=== PATIENT | male | born 1975 | race Caucasian/White ===

== ENCOUNTER 2016-11-28 09:41 | Inpatient (IN) | payer OTHER ==
[~2016-11-28] VITALS: Ht 182.9 cm; Wt 102.4 kg
[2016-11-28] VITALS (14 sets, daily range): BP systolic 132–174; BP diastolic 74–127; PULSE 68–99; RESP 12–20; O2SAT 97–100
--- NOTE | 2016-11-28 10:01 | ED.REPORT ---
HPI-General Illness Date of Service November 28, 2016 ED Provider: Gary Dahl MD The patient is a 41 year old male who presents to the ED due to thoracic pain with respiration onset today. Pt also reports pain in his chest and neck that began 4-5 days ago and has been increasing in severity. He describes abdominal pain that starts beneath his rib cage and radiates to the back. Pt had a cold last week with a productive cough and nasal congestion. Pt's girlfriend confirms weakness and fatigue and has, "never seen him like this before." He has been taking Excedrin and Ibuprofen for pain and denies fevers, nausea, and vomiting. The pt uses THC irregularly and does not do IV drugs. Nursing Notes Stated Complaint: PAIN IN NECK/SOB Chief Complaint: General Complaint Nursing Notes Reviewed: Yes Allergies: Coded Allergies: No Known Allergies (Verified , 11/28/16) Scheduled PRN Ibuprofen (Ibuprofen) 400 Mg Tablet 400 MG PO TID PRN PRN For Pain Miscellaneous Medications ([Excedrin]) General Time Seen by MD: 09:47 Chief Complaint Other (thoracic pain with respiration) Hx Obtained From: Patient, Spouse Arrived By: Walk-in Sudden in Onset?: Yes Onset Occurred: 4 days ago Symptom Duration: Since onset Location: : Abdomen: Back: Chest Quality: Painful Severity: Current: Moderate Recent Healthcare: No recent doctor visit, No recent hospitalization Similar Sx Previous: No Past Medical History Past Medical History pericarditis Past Surgical History gastric bypass Social History Drug Use: THC Other Social History: Good social support, Local resident Ambulatory Status Independent Review of Systems Full Review of Systems Constitutional: Reports: Fatigue, Denies: Fever Ears / Nose / Throat: Reports: Nasal congestion Cardiovascular: Reports: Chest pain GI: Reports: Abdominal pain, Denies: Nausea, Vomiting Musculoskeletal: Reports: Back pain, Neck pain, Thoracic pain Neurologic: Reports: Weakness Complete sys rev & neg: except as marked. Physical Exam Vital Signs Vital Signs Date Time Temp Pulse Resp B/P Pulse Ox O2 Delivery O2 Flow Rate FiO2 11/28/16 14:15 90 12 143/85 98 Room Air 11/28/16 13:24 81 12 147/74 97 Room Air 11/28/16 12:32 77 19 149/86 99 Room Air 11/28/16 10:43 85 141/95 99 Room Air 11/28/16 09:47 36.1 99 20 174/127 100 Room Air Initial VS: Reviewed Head / Eyes: Atraumatic, Normocephalic, PERRL Neck: Supple, Non-tender Cardiovascular: Regular rate & rhythm, Heart sounds normal, Intact distal pulses Abdomen / GI: Soft, Non-tender, No guarding, No rebound, No distention Back: No CVA tenderness Extremities: Vascular intact, Neuro intact, No swelling, No tenderness Skin: Warm, Dry General/Constitutional: Awake, Cooperative Respiratory / Chest: No rhonchi, No wheezing, No retractions Faint course breath sounds at bilateral bases Cardiovascular: Heart rate NL, Regular rhythm, No murmurs, No rubs no pericardial friction Tenderness/Guarding/Rebound: Positive: Tender epigastric Back: No CVA tenderness Interpretation & Diagnostics Lab Results Interpretation Result Diagram: 11/29/16 0240 11/29/16 0240 Test 11/28/16 11:00 11/28/16 12:26 D-Dimer 1.92mg/L FEU (<0.50) Total Bilirubin 0.2mg/dL (0.0-1.2) Aspartate Amino Transf (AST/SGOT) 23U/L (0-50) Alanine Aminotransferase (ALT/SGPT) 14U/L (0-44) Alkaline Phosphatase 89U/L (25-150) Troponin T < 0.010ug/L (0.0-0.011) C-Reactive Protein 1.8mg/dL (0.0-0.5) Pro-B-Type Natriuretic Peptide 79.28pg/mL (0-86) Total Protein 7.1g/dL (6.4-8.4) Albumin 3.9g/dL (3.4-5.0) Lipase 23U/L (13-60) Urine Color Yellow (YELLOW) Urine Appearance Clear (CLEAR,HAZY) Urine pH 5.5 (5.0-8.0) Urine Specific [place] 1.025 (1.003-1.035) Urine Protein Tracemg/dL (NEG,TRACE) Urine Glucose (UA) Negativemg/dL (NEGATIVE) Urine Ketones Negativemg/dL (NEGATIVE) Urine Occult Blood Negative (NEGATIVE) Urine Nitrite Negative (NEGATIVE) Urine Bilirubin Small (NEGATIVE) Urine Ictotest Negative (Negative) Urine Urobilinogen Normalmg/dL (NORMAL) Urine Leukocyte Esterase Negative (NEGATIVE) Urine RBC 0-2/hpf (0-2) Urine WBC 0-5/hpf (0-5) Urine Epithelial Cells Few/hpf (NONE-MOD) Urine Crystals None seen (NONE SEEN) Urine Bacteria None/hpf (NONE-FEW) Urine Hyaline Casts None/lpf (NONE) Urine Granular Casts None seen (NONE SEEN) Urine Waxy Casts None seen (NONE SEEN) Urine Red Blood Cell Casts None seen (NONE SEEN) Urine White Blood Cell Casts None seen (NONE SEEN) Urine Mucus None seen (None Seen) Urine Trichomonas None seen (NONE SEEN) Urine Yeast None (NONE SEEN) Urinalysis Comment None Urine Culture Reflexed Not indicated ECG Interpretation ECG Interpretation: no ST changes Time: 10:06 Interpreted by: ED physician Normal ECG Interpretation: Normal sinus rhythm (rate 89) X-Ray Chest Interpretation Chest Xray Interpretation: IMPRESSION: Pneumoperitoneum. Recommend correlation with clinical data and CT scan of the abdomen and pelvis if clinically indicated. Dictated by: Myrna Castro MD, PhD on 11/28/2016 at 10:35 Approved by: Myrna Castro MD, PhD on 11/28/2016 at 10:36 View: Portable Interpretation / Wet Read by: Interpret - Radiologist X-Ray Abdominal Interpretation IMPRESSION: Pneumoperitoneum. Bowel rupture cannot be excluded. Dictated by: Myrna Castro MD, PhD on 11/28/2016 at 11:19 Approved by: Myrna Castro MD, PhD on 11/28/2016 at 11:20 Study: 2 view Interpretation / Wet Read by: Interpret - Radiologist CT Abd / Pelvis Interpretation IMPRESSION: 1. Moderate amount of pneumoperitoneum concerning for bowel rupture area cause of the pneumoperitoneum is not fully visualized by CT imaging. 2. Status post gastric bypass. 3. Right renal atrophy likely related to chronic obstructive uropathy. 4. 9 mm proximal right renal stone without hydronephrosis. 5. L5-S1 grade I isthmic spondylolisthesis. 6. Findings telephoned to Dr. Dahl on 11/28/16 at 1233 hrs. Dictated by: Myrna Castro MD, PhD on 11/28/2016 at 12:28 Approved by: Myrna Castro MD, PhD on 11/28/2016 at 12:37 Study type: Abdominal CT no contrast Interpretation / Wet Read by: Interpret - Radiologist Re-Eval/Medical Decision Med Decision/Clinical Course 41-year-old male history of gastric bypass in 2008 presenting with epigastric pain and chest pain times several days worsening today. Chest x-ray and CT confirmed pneumoperitoneum with no clear source. Discussed with general surgery admitted to hospital with plans to go to the OR emergently. Given 2 L normal saline and Zosyn. Stable at admission. Time of Eval: 11:55 Re-Evaluation/Progress Note: Pt rechecked. Pain is slightly improved. Informed pt of abdominal x-ray showing air in the intestinal tract. Plan for Catscan. Consultation #1: Call Returned at: 11:30 Note: Case discussed with radiology, Dr. Schaffer. He was not able to identify the source. Consultation #2: Referral / Consult Name: Ceferino Santana MD Call Returned at: 12:44 [employer]: Will see patient, Agrees with eval, Agrees with plan Note: Dr. Santana will come and see the pt in the ED. Counseled Regarding: Diagnosis, Lab results, Need for admission Discharge & Departure Primary Impression: Gastrointestinal perforation Disposition: ADMITTED TO HOSPITAL Discharge Condition All VS Reviewed: Yes Condition: Stable Referrals: [facility] Scribe Attestation Portion of this note were transcribed by Ivelisse Brannon. I, Dr. Dahl, personally performed the history, physical exam, and medical decision-making: I reviewed and confirmed the accuracy for the information in the transcribed note. Signed by: tamara Wilkinson, 11/28/16 1500 copies to: [facility] Gary Dahl MD November 28, 2016 10:01 Ivelisse Brannon November 28, 2016 10:32 ECG Interpretation ECG Interpretation: no ST changes Time: 10:06 Interpreted by: ED physician Normal ECG Interpretation: Normal sinus rhythm (rate 89) X-Ray Chest Interpretation Chest Xray Interpretation: IMPRESSION: Pneumoperitoneum. Recommend correlation with clinical data and CT scan of the abdomen and pelvis if clinically indicated. Dictated by: Myrna Castro MD, PhD on 11/28/2016 at 10:35 Approved by: Myrna Castro MD, PhD on 11/28/2016 at 10:36 View: Portable Interpretation / Wet Read by: Interpret - Radiologist X-Ray Abdominal Interpretation IMPRESSION: Pneumoperitoneum. Bowel rupture cannot be excluded. Dictated by: Myrna Castro MD, PhD on 11/28/2016 at 11:19 Approved by: Myrna Castro MD, PhD on 11/28/2016 at 11:20 Study: 2 view Interpretation / Wet Read by: Interpret - Radiologist CT Abd / Pelvis Interpretation IMPRESSION: 1. Moderate amount of pneumoperitoneum concerning for bowel rupture area cause of the pneumoperitoneum is not fully visualized by CT imaging. 2. Status post gastric bypass. 3. Right renal atrophy likely related to chronic obstructive uropathy. 4. 9 mm proximal right renal stone without hydronephrosis. 5. L5-S1 grade I isthmic spondylolisthesis. 6. Findings telephoned to Dr. Dahl on 11/28/16 at 1233 hrs. Dictated by: Myrna Castro MD, PhD on 11/28/2016 at 12:28 Approved by: Myrna Castro MD, PhD on 11/28/2016 at 12:37 Study type: Abdominal CT no contrast Interpretation / Wet Read by: Interpret - Radiologist Re-Eval/Medical Decision Time of Eval: 11:55 Re-Evaluation/Progress Note: Pt rechecked. Pain is slightly improved. Informed pt of abdominal x-ray showing air in the intestinal tract. Plan for Catscan. Consultation #1: Call Returned at: 11:30 Note: Case discussed with radiology, Dr. Schaffer. He was not able to identify the source. Consultation #2: Referral / Consult Name: eCferino Santana MD Call Returned at: 12:44 [employer]: Will see patient, Agrees with eval, Agrees with plan Note: Dr. Santana will come and see the pt in the ED. Counseled Regarding: Diagnosis, Lab results, Need for admission Discharge & Departure Primary Impression: Gastrointestinal perforation Disposition: ADMITTED TO HOSPITAL Discharge Condition All VS Reviewed: Yes Condition: Stable Referrals: [facility] Tamara Attestation Portion of this note were transcribed by Ivelisse Brannon. I, Dr. Dahl, personally performed the history, physical exam, and medical decision-making: I reviewed and confirmed the accuracy for the information in the transcribed note. Signed by: tamara Wilkinson, 11/28/16 1500 copies to: [facility] Gary Dahl MD November 28, 2016 10:01 Ivelisse Brannon November 28, 2016 10:32
[2016-11-28] MEDS ORDERED: 0.9% Sodium Chloride 1,000 ML IV ONE (10:33)
[2016-11-28] MEDS ORDERED: Ondansetron 2 mg/mL 2 mL Inj IVPUSH PRN ×6 (10:35→18:40)
[2016-11-28] MEDS ORDERED: LidocaineVisc 2%:Antacid 1:1 10 mL Syringe PO ONE (10:35)
--- NOTE | 2016-11-28 10:38 | DRSVH ---
PROCEDURE: X-RAY CHEST ONE VIEW, PORTABLE ([id number]) INDICATIONS: Shortness of breath TECHNIQUE: One view of the chest was acquired. COMPARISON: None. FINDINGS: Surgical changes and devices: None. Lungs and pleura: No pleural effusions or pneumothorax. Lungs are clear. Mediastinum: Mediastinal contours appear normal. Heart size is normal. Free air under the diaphrag ms bilaterally. Bones and chest wall: No suspicious bony lesions. Overlying soft tissues appear unremarkable. IMPRESSION: Pneumoperitoneum. Recommend correlation with clinical data and CT scan of the abdomen a nd pelvis if clinically indicated. Dictated by: Myrna Castro MD, PhD on 11/28/2016 at 10:35 Approved by: Myrna Castro MD, PhD on 11/28/2016 at 10:36
[2016-11-28 11:20] LABS: BASOPHILS % (AUTO) 0.1 % (0-3); EOSINOPHILS % (AUTO) 2.3 % (0-5); MONOCYTES % (AUTO) 6.1 % (4-12); Mean Corpuscular Hemoglobin 23.5 pg (27.0-35.0); Mean Corpuscular Volume 76.3 fL (81-100); NEUTROPHILS % (AUTO) 85.1 % (40-74); Platelet Count 450 bil/L (150-400)
--- NOTE | 2016-11-28 11:22 | DRSVH ---
PROCEDURE: X-RAY ABDOMEN WITH ERECT AND/OR DECUBITUS VIEWS ([id number]) INDICATIONS: abdominal pain TECHNIQUE: 2 views of the abdomen were acquired. COMPARISON: None. FINDINGS: Surgical changes and devices: None. Bowel: Free air is noted under the left hemidiaphragm. Multiple surgical sutures noted in the gastr oesophageal junction. The bowel gas pattern is normal. Soft tissues: No masses; visualized solid organ contours appear normal in size. No suspicious abdom inal calcifications. Bones: No suspicious bony abnormalities. IMPRESSION: Pneumoperitoneum. Bowel rupture cannot be excluded. Dictated by: Myrna Castro MD, PhD on 11/28/2016 at 11:19 Approved by: Myrna Castro MD, PhD on 11/28/2016 at 11:20
[2016-11-28] MEDS ORDERED: Piperacillin-Tazo 3.375 Gm Inj 3.375 GM in Dextrose 5% Minibag Plus 50 ML IV ONE (11:35)
[2016-11-28 11:43] LABS: TROPONIN T < 0.010 ug/L (0.0-0.011)
[2016-11-28 11:48] LABS: Lipase 23 U/L (13-60)
[2016-11-28] MEDS ORDERED: IBUP400T22 PO (12:38)
--- NOTE | 2016-11-28 12:38 | DRSVH ---
PROCEDURE: CT ABDOMEN AND PELVIS WITH CONTRAST ([id number]) INDICATIONS: abd pain pneumoperiteneum TECHNIQUE: After the administration of intravenous contrast, 5 mm thick sections acquired from the diaphragm to the symphysis. 5 mm coronal and sagittal reformats were acquired. For radiation dose reduction, the following was used: automated exposure control, adjustment of mA and/or kV according to patient siz e. COMPARISON: [facility], CT, ABD/PELVIS W/CON (PNL), 01/14/2009, 15:48. FINDINGS: Image quality: Excellent. ABDOMEN: Lung bases: Lung bases are clear. Heart size is normal. Solid organs: Liver and spleen are normal in size and enhancement. Gallbladder is within normal its. Biliary system is non dilated. Pancreas enhances normally. No adrenal nodules. Right kidney i s atrophied. There is compensatory hypertrophy of the left kidney. 9 mm in diameter stones noted in the proximal right ureter without associated hydronephrosis. 1.7 cm left renal cyst is noted. Peritoneum and bowel: Bowel loops demonstrate normal wall thickness and caliber. Moderate amount of free air is seen throughout the abdomen and pelvis including within the lesser sac. Postsurgical lui nges compatible prior gastric bypass surgery noted. Nodes and vessels: No retroperitoneal or mesenteric adenopathy by size criteria. Aorta and inferior vena cava are normal in size. Miscellaneous: No ventral hernias. PELVIS: Genitourinary: Bladder wall thickness is normal. Miscellaneous: No inguinal hernias or adenopathy. Bones: No suspicious bony lesions. No vertebral body compression fractures. L5-S1 degenerative disc disease and grade one isthmic spondylolisthesis noted. IMPRESSION: 1. Moderate amount of pneumoperitoneum concerning for bowel rupture area cause of the pneumoperitone um is not fully visualized by CT imaging. 2. Status post gastric bypass. 3. Right renal atrophy likely related to chronic obstructive uropathy. 4. 9 mm proximal right renal stone without hydronephrosis. 5. L5-S1 grade I isthmic spondylolisthesis. 6. Findings telephoned to Dr. Dahl on 11/28/16 at 1233 hrs. Dictated by: Myrna Castro MD, PhD on 11/28/2016 at 12:28 Approved by: Myrna Castro MD, PhD on 11/28/2016 at 12:37
[2016-11-28 12:48] LABS: APPEARANCE,URINE CLEAR (CLEAR,HAZY); COLOR,URINE YELLOW (YELLOW); ICTOTEST,URINE NEGATIVE (Negative); OCCULT BLOOD,URINE NEGATIVE (NEGATIVE); PH,URINE 5.5 (5.0-8.0); UROBILINOGEN,URINE NORMAL (NORMAL)
[2016-11-28] MEDS ORDERED: EXCEDRIN (13:24)
[2016-11-28] MEDS ORDERED: PSEU240T6 PO (13:24)
[2016-11-28] MEDS ORDERED: Alum-Mag Hydrox-Simeth 30 mL Suspension PO PRN (14:00)
[2016-11-28] MEDS ORDERED: Polyethylene Glycol (PEG) 17 Gm Powder PO PRN (14:00)
[2016-11-28] MEDS ORDERED: Glycopyrrolate 0.2 MG/ML 1mL Inj ONE (14:19)
[2016-11-28] MEDS ORDERED: Neostigmine 1 mg/mL 10 mL Inj ONE (14:19)
[2016-11-28] MEDS ORDERED: Dexamethasone 4 mg/mL Inj ONE (14:19)
[2016-11-28] MEDS ORDERED: Rocuronium 10 mg/mL 5 mL Inj ONE (14:19)
[2016-11-28] MEDS ORDERED: Ondansetron 2 mg/mL 2 mL Inj ONE (14:19)
[2016-11-28] MEDS: 0.9% Sodium Chloride 1,000 ML IV SCH ×2 (15:01→23:58)
--- NOTE | 2016-11-28 15:19 | PCM.HPMED ---
Subjective Date of Service November 28, 2016 Primary Provider: Admitting Physician: Uvaldo Marmolejo DO Primary Care Physician: Milind Attending Physician: Ceferino Santana MD Chief Complaint: Abdominal pain radiating to back History of Present Illness: Patient is a 41-year-old male past medical history significant for remote bariatric surgery greater than 10 years ago presenting now for these are becoming more severe overnight. Pertinent history includes chronic dental and back pain for which patient takes a significant amount of ibuprofen. He denies any dark black or bloody stools however, notes stool pattern recently has been light brown and slightly watery. Last night he endorsed perhaps some mild chills but denies any fever or sweats. He also denies any palpitations or shortness of breath. Additional recent history includes a likely viral URI she occurred approximately one week previous creating a productive cough and nasal congestion, but this has been improving. Patient is accompanied by his girlfriend confirms T has not been himself appears very weak and fatigued and she has "never seen him like this before". Patient additionally denies any dizziness or blurry vision. Denies any pain radiating to extremities. Denies any focal weakness but he is overall feeling quite fatigued. Review of Systems: A 10 point review of systems is conducted and entirely negative excepting pertinent positives and negatives included in above history of present illness Allergies Coded Allergies: No Known Allergies (Verified , 11/28/16) Home Medications Ibuprofen when necessary Excedrin when necessary No scheduled medications PMH Remote history of pericarditis Obesity, benefited from gastric bypass surgery. Surgical History Gastric bypass surgery, patient is unsure of what type, states they told him they left a small amount of gastric tissue. Family History Notes father passed from heart disease some type Other side is more healthy is aware of no chronic diseases on her side. Social History Hx Alcohol Use: Yes (NONE REALLY ANYMORE. HEAVY DRINKER 2004-2009ISH) Hx Substance Use: Yes (OCCASIONAL MARIJUANA) Hx Tobacco Use: Yes Exam Vital Signs Vital Sign - Last Date Time Temp Pulse Resp B/P Pulse Ox O2 Delivery O2 Flow Rate FiO2 11/28/16 14:57 70 15 132/78 100 Room Air 11/28/16 09:47 36.1 General: Alert, Oriented X3, Cooperative, Moderate Distress Mouth: Mucous Membr Moist/[place], Other (patient has overall poor dentition multiple cavities noted however there is no overt abscess or gum infection noted on my examination.) Neck: Supple Chest & Lungs: Clear to auscultation & percussion Cardiovascular: Regular Rate/Rhythm Abdomen: Tender, Non-distended, Other (deep palpation is not conducted given identification of likely perforated viscus on imaging, patient is diffusely tender more pronounced in upper quadrants. Bowel sounds are present. ) Extremities: No cyanosis/clubbing/edma bilat Neurological: Grossly Neurologically Intact, Cranial Nerves 2-12 Intact Lab and Diagnostics Result Diagram: 11/28/16 1100 11/28/16 1100 Assessment & Plan 41-year-old male presenting with likely perforated viscus related to excessive NSAID use with a remote history of gastric bypass surgery admitted for expected exploratory surgery and hopeful treatment of this condition. #. Perforated viscus likely secondary to upper GI ulcer in the setting of excessive NSAID use - Gen. surgery has seen and evaluated patient planning on taking him to OR later today - Patient is nothing by mouth an expectation of upcoming surgery - Intravenous fluids will be continued at 100 mL per hour - Pain control with when necessary morphine to be titrated as needed - Zosyn initiated in ER will be continued for coverage of possible bacterial peritonitis secondary to perforation #Dental pain - We will provide opiate-based pain medications at this time, NSAIDs would certainly be contraindicated in the future - Tylenol may be reasonable alternative, ideally further evaluation by dental professional will be ideal for long-term treatment of dental disease. CODE STATUS is been reviewed directly patient prefers to be full code at this time. Given severity of condition as did patient will require more than 2 midnights for adequate care medical stabilization prior to discharge Pain Evaluation: Adequate Pain Control VTE Mechanical Devices: Intermittant Pneumatic CD Resuscitation Status: CPR: Attempt Resuscitation Time spent 55 minutes Uvaldo Marmolejo DO November 28, 2016 15:19
--- NOTE | 2016-11-28 16:00 | HP ---
[address] [address] HISTORY AND PHYSICAL PATIENT: LAURA YEH : 1975 MR#: [id number] ADMIT: 11/28/2016 JOB ID: [id number] CHIEF COMPLAINT: Perforated viscus. HISTORY OF PRESENT ILLNESS: The patient is a 41-year-old male who presented to the emergency department today due to worsening epigastric abdominal pain. The patient reports having this abdominal pain for the past five days or so. He was coughing quite a bit prior to the five days due to having colds or flu. The pain is described to be in the epigastric region and radiates to the left costal region and up into his neck. He has been having weakness and fatigue. The patient has had a history of laparoscopic gastric bypass in [place] in 2002. He was routinely taking ibuprofen approximately 400 mg a day for toothaches and back pain and over the past five days he has increased the amount to about eight pills a day, which is 1600 mg a day, for his abdominal pain. He denies any vomiting due to his history of gastric bypass and he denies any fevers. Workup in the emergency department today shows an elevated white blood count of 16.3 and a plain x-ray shows pneumoperitoneum and subsequently a CT scan that confirms a moderate amount of pneumoperitoneum. He is status post gastric bypass. PAST MEDICAL HISTORY: Laparoscopic gastric bypass in 2002 in [place]. History of pericardial effusion and pericarditis requiring a drain, right axillary sweat gland removal. HOME MEDICATIONS: Include ibuprofen and also pseudoephedrine. ALLERGIES: None. SOCIAL HISTORY: The patient lives in [place] with his girlfriend. He does not drink. He works in property preservation. Occasionally smokes marijuana. FAMILY HISTORY: Positive for diabetes in his father and heart disease. REVIEW OF SYSTEMS: Positive for the epigastric pain for the past five days, requiring increasing amounts of ibuprofen. No fever and no vomiting. PHYSICAL EXAMINATION: Patient currently in the emergency department in no acute distress. His weight is 109.09 kg. His temperature is 36.1, blood pressure 147/74, pulse is 81, respirations 12. Head is normocephalic, atraumatic. There is no scleral icterus. Neck is supple. Heart is in regular rate. Lungs are clear. Abdomen is nondistended but it is tender to palpation in the epigastric location and extends to the left upper quadrant as well. The right lower abdomen is soft. Extremities show no clubbing and no cyanosis. Neurologically, patient is awake and alert and answers appropriately. LABORATORY EXAMINATION: Today shows a white blood count of 16.3, hematocrit 36.1, platelet count is 450. Sodium is 140, potassium 4.4, creatinine 1.14. Lipase of 23. Total bilirubin of 0.2. His chest x-ray from today shows the pneumoperitoneum and this is confirmed by abdominal x-rays and also the abdominal CT scan. ASSESSMENT: This is a 41-year-old male with a history of gastric bypass with a perforated viscus. The patient has been started with IV antibiotics and he is receiving IV fluid resuscitation. The patient will be taken to the operating room today for diagnostic laparoscopy, possible laparotomy. The risks of the operation were explained to the patient and his girlfriend and they understand and wish to proceed. The patient will most likely require intensive care unit in the postop period. I will consult the hospitalist team. EMELYN
[2016-11-28] MEDS ORDERED: Lactated Ringer's 1,000 ML IV ONE ×2 (16:05→17:10)
--- NOTE | 2016-11-28 16:05 | PCM.HPANE ---
Patient Data Surgeon Admitting Provider:Uvaldo Marmolejo DO Attending Provider:Ceferino Santana MD Primary Care Physician:Nopcp Other Provider: Reason for Visit Gi Perforation Ht/WT & BMI Height (Feet): 6 Weight (Kilograms): 99.100 Body Mass Index 29.59 Allergies Coded Allergies: No Known Allergies (Verified , 11/28/16) Past Anesthesia History Anesthesia History: Denies:: Anesthesia Reactions Medications Reported Medications [Excedrin] No Conflict Check 11/28/16 Ibuprofen 400 Mg [id number] Mg PO TID PRN For Pain Ref 0 11/28/16 Discontinued Reported Medications Pseudoephedrine HCl (Sudafed 24-Hour)240 Mg Tab.[id number] Mg PO 11/28/16 History History of ENT Problems?: No HEENT History: Denies:: Abnormal Airway Difficult Intubation Denture Type: None Teeth Condition: Within Normal Limits Hx of Heart Problems?: Yes Cardiovascular History: Denies:: Chest Pain Congestive Heart Failure Other History/Comments History of pericarditis Hx of Respiratory Problem?: Yes Respiratory History: Positive for:: Dyspnea (X1 week prior to admission) Hx Neurologic Problems?: No Hx of GI Problems?: Yes Hx of Problems?: No Male Hx: Denies:: Scrotal Mass Testicular Surgery Hx Musculoskeletal Problems?: No Hx of Psycho/Social Problems?: No Hx Surgeries?: Yes (gastric bypass, I&D of armpit) Hx Any Other Health Problems?: Yes Other History: Positive for:: Hospitalization History Blood Transfusions: Denies:: Blood Transfusions Hx Alcohol Use: Yes (NONE REALLY ANYMORE. HEAVY DRINKER 2004-2009ISH)Hx Substance Use: Yes (OCCASIONAL MARIJUANA)Have You Smoked inLast 12 mo: Yes Stop/Bang Treated for Sleep Apnea?: No Do You Have a CPAP Machine?: No S-Snoring: Do You Snore Loudly: No T-Tired: feel tired, fatigued: No O-Obsered: Observed not breath: No P-Blood Pressure: treated: No B- Body Mass Index > 35 kg/m2: No A- Age over 50: No N- Neck Large Circumference: No G- Gender Male: Yes COLTON Risk Assessment: Low Risk, <3 Yes Risk Assessment Category Category 1A: Patient has history of documented sleep apnea, and HAS NOT received any narcotic, sedative or anesthesia administration during this stay. Category 1B: Patient has history of documented sleep apnea, and HAS received any narcotic , sedative or anesthesia administration during this stay Category 2: Patient has SUSPECTED Obstructive Sleep Apnea, and HAS received any narcotic , sedative or anesthesia administration during this stay. Category 3: Patient has SUSPECTED Obstructive Sleep Apnea and HAS NOT received narcotic, sedative or anesthesia administration during this stay. Category 4: Outpatient in Procedural Areas with known sleep apnea or who screen positive for High Risk via the STOP/BANG questionnaire. Exam Exam Vital Signs Vital Signs Date Time Temp Pulse Resp B/P Pulse Ox O2 Delivery O2 Flow Rate FiO2 11/28/16 15:19 36.7 69 18 135/86 99 Room Air 11/28/16 14:57 70 15 132/78 100 Room Air 11/28/16 14:15 90 12 143/85 98 Room Air 11/28/16 13:24 81 12 147/74 97 Room Air 11/28/16 12:32 77 19 149/86 99 Room Air 11/28/16 10:43 85 141/95 99 Room Air 11/28/16 09:47 36.1 99 20 174/127 100 Room Air General Appearance: Alert, Oriented X3, Cooperative, Moderate Distress HEENT/AIRWAY: MP 2 Lungs: Clear to Auscultation, Normal Air Movement Heart: Exam Unremarkable, Regular Rate/Rhythm, No Murmurs/Rubs/Gallops Meds/Labs/Diagnostics Admission Meds Current Medications Sodium Chloride 1,000 ml @ 0 mls/hr Q0M ONCE IV Last administered on 11:23; Start 11/28/16 at 10:33; Stop 11/28/16 at 10:37; Status DC Piperacillin Sod/ Tazobactam Sod 3.375 gm/Dextrose/ Water 50 ml @ 100 mls/hr ONCE ONCE IV Last administered on 11/28/16 11:58; Start 11/28/16 at 11:35; Stop 11/28/16 at 12:04; Status DC Sodium Chloride (Normal Saline) 1,000 ml @ 100 mls/hr Q10H IV Last administered on 11/28/16 15:01; Start 11/28/16 at 13:59 Labs Test 11/28/16 11:00 11/28/16 12:26 White Blood Count 16.3th/mm3 (3.8-10.1) Red Blood Count 4.73mil/mm3 (4.40-5.80) Hemoglobin 11.1g/dL (13.8-17.2) Hematocrit 36.1% (41.0-50.0) Mean Corpuscular Volume 76.3fL (81-100) Mean Corpuscular Hemoglobin 23.5pg (27.0-35.0) Mean Corpuscular Hemoglobin Concent 30.7% (32.0-37.0) Red Cell Distribution Width 17.1% (12.3-15.4) Platelet Count 450bil/L (150-400) Neutrophils (%) (Auto) 85.1% (40-74) Lymphocytes (%) (Auto) 6.2% (14-46) Monocytes (%) (Auto) 6.1% (4-12) Eosinophils (%) (Auto) 2.3% (0-5) Basophils (%) (Auto) 0.1% (0-3) D-Dimer 1.92mg/L FEU (<0.50) Sodium Level 140mEq/L (134-144) Potassium Level 4.4mEq/L (3.5-5.2) Chloride Level 104mEq/L (97-108) Carbon Dioxide Level 18mmol/L (18-29) Blood Urea Nitrogen 18mg/dL (6-24) Creatinine 1.14mg/dL (0.76-1.27) Estimat Glomerular Filtration Rate 75mL/min (>59) Glucose Level 103mg/dL (60-99) Calcium Level 9.4mg/dL (8.5-10.1) Total Bilirubin 0.2mg/dL (0.0-1.2) Aspartate Amino Transf (AST/SGOT) 23U/L (0-50) Alanine Aminotransferase (ALT/SGPT) 14U/L (0-44) Alkaline Phosphatase 89U/L (25-150) Troponin T < 0.010ug/L (0.0-0.011) C-Reactive Protein 1.8mg/dL (0.0-0.5) Pro-B-Type Natriuretic Peptide 79.28pg/mL (0-86) Total Protein 7.1g/dL (6.4-8.4) Albumin 3.9g/dL (3.4-5.0) Lipase 23U/L (13-60) Urine Color Yellow (YELLOW) Urine Appearance Clear (CLEAR,HAZY) Urine pH 5.5 (5.0-8.0) Urine Specific [place] 1.025 (1.003-1.035) Urine Protein Tracemg/dL (NEG,TRACE) Urine Glucose (UA) Negativemg/dL (NEGATIVE) Urine Ketones Negativemg/dL (NEGATIVE) Urine Occult Blood Negative (NEGATIVE) Urine Nitrite Negative (NEGATIVE) Urine Bilirubin Small (NEGATIVE) Urine Ictotest Negative (Negative) Urine Urobilinogen Normalmg/dL (NORMAL) Urine Leukocyte Esterase Negative (NEGATIVE) Urine RBC 0-2/hpf (0-2) Urine WBC 0-5/hpf (0-5) Urine Epithelial Cells Few/hpf (NONE-MOD) Urine Crystals None seen (NONE SEEN) Urine Bacteria None/hpf (NONE-FEW) Urine Hyaline Casts None/lpf (NONE) Urine Granular Casts None seen (NONE SEEN) Urine Waxy Casts None seen (NONE SEEN) Urine Red Blood Cell Casts None seen (NONE SEEN) Urine White Blood Cell Casts None seen (NONE SEEN) Urine Mucus None seen (None Seen) Urine Trichomonas None seen (NONE SEEN) Urine Yeast None (NONE SEEN) Urinalysis Comment None Urine Culture Reflexed Not indicated Plan Impression Patient chart reviewed, patient interviewed and anesthestic plan with risks, benefits, and alternatives discussed, and informed consent obtained. NPO per Anesth. Guidelines: Yes ASA Physical Status: ASA2 Plus Emergency Anesthetic Plan: GA Bene/Risks/Altern/Consents: Yes HP Complete Prior to Induction: Yes Cecilio Burton MD November 28, 2016 16:05
[2016-11-28] MEDS ORDERED: Bupivacaine-MPF 0.25%/EPI 30 mL Inj INFILTRATE ONE (17:33)
--- NOTE | 2016-11-28 17:53 | NUR ---
Admit/transfer to OR Patient arrived in CCU after 1500 today. Patient was awake and oriented X3 but appeared to be tired. Vitals remained stable. Abdomen was soft but tender and patient was reluctant to take deep breaths. Oxygen saturation on RA was 96-98% with respiratory rate 16-18 breaths per min. Patient stated increase in his abdominal pain from 4-5/10 to 5-7/10 he was medicate with morphine 2mg IV X1 but pain did not improved and within 10 min patient was given a second dose of morphine 2mg IV of total of 4- paten decreased to 2-4/10 ranges and patient was able to relax. Patient was taken out to OR at 1650 by SOIL ANALYST. Patient voided x1 225ml of cam urine master control operator to OR. Blood glucose per finger stick was 105 at the time. Prior to transfer to OR patient was given instructions regarding the possibility of Walters catheter insertion in OR, returning to CCU on oxygen or intubated with possible abdominal drains and OG tube as well as MILK TREATER instructions. Patient and his present in the room at the time verbalized understanding. Report was given to the SOIL ANALYST at the bedside.
[2016-11-28] MEDS ORDERED: Lactated Ringer's 500 ML IV PRN (18:04)
[2016-11-28] MEDS ORDERED: Lactated Ringer's 1,000 ML IV SCH (18:04)
[2016-11-28] MEDS ORDERED: HYDROmorphone 1 mg/mL Inj IVPUSH PRN (18:05)
[2016-11-28] MEDS ORDERED: Atropine 0.4 mg/mL Inj IVPUSH PRN (18:05)
[2016-11-28] MEDS ORDERED: MetoCLOpramide 5 mg/mL 2 mL Inj IVPUSH PRN ×3 (18:05→18:40)
[2016-11-28] MEDS ORDERED: Labetalol 5 mg/mL 4 mL Inj IV PRN (18:05)
[2016-11-28] MEDS ORDERED: EPHEDrine Sulfate 50 mg/mL Inj IVPUSH PRN (18:05)
[2016-11-28] MEDS ORDERED: Phenylephrine 10,000 mCg/mL Inj IVPUSH PRN (18:05)
[2016-11-28] MEDS ORDERED: Dexamethasone 4 mg/mL Inj IVPUSH PRN (18:05)
[2016-11-28] MEDS: Dextrose 5% 500 ML IV SCH (18:39)
[2016-11-28] MEDS ORDERED: HYDROmorphone 0.5 mg/0.5 mL iSecure Syringe IVPUSH PRN (18:40)
[2016-11-28] MEDS: fentaNYL-PF 50 mCg/mL 2 mL Inj IVPUSH PRN ×2 (18:53→19:14)
--- NOTE | 2016-11-28 18:57 | OP ---
[address] [address] OPERATIVE REPORT PATIENT: LAURA YEH : 1975 MR#: [id number] ADMIT: 11/28/2016 JOB ID: [id number] DATE OF SURGERY: 11/28/2016 SURGEON: Ceferino Santana MD. FARM FIELD MANAGER: Mikel Castillo PA-C. ANESTHESIA: General. PREOPERATIVE DIAGNOSIS(ES): Perforated viscus. POSTOPERATIVE DIAGNOSIS(ES): Perforated viscus. PRINCIPAL PROCEDURE: Diagnostic laparoscopy, conversion to open laparotomy, closure of gastrointestinal perforation with omental patch closure. INDICATION FOR PROCEDURE: The patient is a 41-year-old male with a history of laparoscopic gastric bypass who has a perforated viscus. PRINCIPAL FINDING: A definite perforation approximately 0.5 cm in size, and this was closed using 3 interrupted silk sutures using an omental patch. A Pierre-Vo drain was left in place. PROCEDURE COURSE: The patient was brought to the operating table and was provided with general anesthesia. The patient was given a Walters catheter and SCDs. The patient received preoperative IV antibiotics. A time-out was performed. The patient's abdomen was then prepped and draped in the usual sterile fashion. Next, local anesthetic was injected into the infraumbilical location and a 5 mm stab incision was made. A Veress needle was used to establish a pneumoperitoneum. Next, a 5 mm trocar was then placed and the laparoscope was then introduced. A second 5 mm trocar was then placed in the left upper quadrant location, and a third port was placed in the upper midline. We could see some cloudy fluid by the left lateral hepatic segment and also on the anterior surface of the Trinh limb going up to the gastric pouch. After some blunt mobilization and suctioning and taking off some adhesions, we were able to identify a 0.5 cm sized oval-shaped perforation on the anterior surface of the Trinh limb going to the gastric pouch. With the perforation identified, we decided to perform an open laparotomy. An upper midline incision was planned and incision was made and the peritoneum was entered without difficulty. The perforated site was easily visible and within easy reach of the incision. Three interrupted silk sutures were laid in place to close the perforation and an omentum was laid directly on top of the perforation, and the three sutures were then tied down, securing the omental patch. Next a copious irrigation was carried out of the upper abdomen and also lower abdomen. Through the left lateral port site, a 19-[place] Pierre-Vo drain was placed and brought anteriorly and superiorly near the perforation site by the Trinh limb. There was no other pathology noted in the pelvis or in the right upper quadrant. Next, the upper midline fascia was then closed from both ends using 0 PDS suture and the two sutures were then tied at the midline. The subcutaneous tissue was then irrigated and the skin was closed using an absorbable suture. The other port site was also closed using absorbable suture. By the end of procedure, needle counts and sponge counts were correct. The patient was then extubated and taken to the recovery room in stable satisfactory condition. The assistance from a surgical PA was critical in completion of the case.
[2016-11-28] MEDS: HYDROmorphone PCA 0.2 mg/mL 30 mL Inj IV PRN (19:27)
[2016-11-28] MEDS: Piperacillin-Tazo 3.375 Gm Inj 3.375 GM in Dextrose 5% Minibag Plus 50 ML IV SCH (19:57)
--- NOTE | 2016-11-28 20:00 | PCM.ANEP1 ---
Post Anesthesia PACU Phase 1 Assessment Vital Signs Vital Signs Date Time Temp Pulse Resp B/P Pulse Ox O2 Delivery O2 Flow Rate FiO2 11/28/16 19:05 70 16 157/89 99 Nasal Cannula 2 11/28/16 19:00 69 15 153/97 100 Nasal Cannula 4 11/28/16 18:55 68 14 147/95 100 Nasal Cannula 4 11/28/16 18:50 76 15 157/100 99 Nasal Cannula 4 11/28/16 18:45 73 15 155/93 100 Simple Mask 10 11/28/16 18:43 36.3 74 15 156/95 100 Simple Mask 10 11/28/16 15:19 36.7 69 18 135/86 99 Room Air 11/28/16 14:57 70 15 132/78 100 Room Air 11/28/16 14:15 90 12 143/85 98 Room Air 11/28/16 13:24 81 12 147/74 97 Room Air 11/28/16 12:32 77 19 149/86 99 Room Air Anesthetic Administered: GA Level of Alertness: Awake, talking FRANCIS's with Equal Strength: No Pain: Yes Pain Scale Score: 2 Nausea or Vomiting: No CV Function and Hydration: Yes Airway Device: Endotrachial Tube Lungs: Clear to Auscultation, Normal Air Movement Dermatome Level: Full Sensation PACU Phase 2 Assessment Complications: No Follow up Care: N/A Patient Instructions Provided: Yes Cecilio Burton MD November 28, 2016 20:00
[2016-11-29] VITALS (10 sets, daily range): BP systolic 128–168; BP diastolic 62–105; PULSE 58–89; RESP 14–20; O2SAT 97–100
--- NOTE | 2016-11-29 01:44 | NUR ---
P) Post op/Cardiac Pt. initially drowsy on transfer from PACU, now alert and oriented. Pain relatively well controlled with CARDING DOUBLER after repeated CARDING DOUBLER teaching, encouraging pulmonary hygiene, abdominal dressing C/D/I, MARIA M pulling a moderate amount of sanguinous drainage. Cardiac rhythm very irregular, from aparna to tachy with intermittent IVCD. I) Encourage CARDING DOUBLER use and pulmonary hygiene with abdominal splinting, meds per DrFern's orders. E) Pt. resting quietly, no nausea, significant other in attendance.
[2016-11-29 02:59] LABS: BASOPHILS % (AUTO) 0.1 % (0-3); EOSINOPHILS % (AUTO) 0 % (0-5); MONOCYTES % (AUTO) 1.9 % (4-12); Mean Corpuscular Hemoglobin 23.6 pg (27.0-35.0); Mean Corpuscular Volume 76.4 fL (81-100); NEUTROPHILS % (AUTO) 93.4 % (40-74); Platelet Count 363 bil/L (150-400)
[2016-11-29] MEDS: Piperacillin-Tazo 3.375 Gm Inj 3.375 GM in Dextrose 5% Minibag Plus 50 ML IV SCH ×3 (04:02→19:49)
--- NOTE | 2016-11-29 07:40 | PCM.PNSURG ---
Subjective Date of Service: November 29, 2016 Date of Service: November 29, 2016 Visit Information: Reason for Visit Gi Perforation Surgery/Surgery Date Post-Op Day # Date of Admission: November 28, 2016 at 14:18 Hospital Day # Subjective: States he still has abdominal pain. When he does not move his pain as a 2 out of 10 and is well-controlled with his Dilaudid YARDING ENGINEER, when he does move the pain significantly increases. He has not ambulated since the surgery yesterday, is making urine though is not had a bowel movement or passed gas. Bowel tones are also absent. He denies fever or chills, nausea or vomiting or chest pain. He is able to eat ice chips. 30 mL red fluid from MARIA M drains today. White count 13.1 from 16.3 yesterday. Afebrile. Overnight heart rate ranged from 100 to mid 50s, sinus rhythm. Asymptomatic. Objective Vital Sign- Last 8 Hours Date Time Temp Pulse Resp B/P Pulse Ox O2 Delivery O2 Flow Rate FiO2 11/29/16 05:48 14 97 11/29/16 04:00 36.8 72 14 154/62 97 Nasal Cannula 2.00 11/29/16 04:00 14 97 11/29/16 00:00 14 99 11/29/16 00:00 36.9 68 14 128/90 99 Nasal Cannula 2.00 Intake and Output- Last 8 Hour 11/29/16 Cumulative From/Thru 07:00 11/28/16 09:47 - 11/29/16 05:48 Intake Total 1091 ml 3441 ml Output Total 780 ml 1415 ml Balance 311 ml 2026 ml Intake Oral 0 ml IV Total 1091 ml 3441 ml Output Urine Total 750 ml 1385 ml Drainage Total 30 ml 30 ml # Voids 3 General: Alert, Oriented X3, Cooperative Lungs: Clear to Auscultation, Normal Air Movement Heart: Regular Rate/Rhythm Abdomen: Appropriately tender SURGICAL WOUND : Wound General Appearence: Steri Strips, Well Approximated, No Erythema, No Discharge, No Inflammatory Changes, Warmth to palpation Dressing & Drainage Status: Intact Wound Drainage Type: MARIA M Drain #1 (small amount of blood GP drain, drainage bag and reportedly been changed prior to my exam) Result Diagram: 11/29/16 0240 11/29/16 0240 Assessment & Plan Impression Assessment & Plan: #. Perforated viscus likely secondary to upper GI ulcer in the setting of excessive NSAID use - Diagnostic laparoscopy converted to open laparotomy yesterday with closure of gastrointestinal perforation with omental patch closure - Continue to diet with sips and chips - Gastrografin study tomorrow - Continue IV fluids Intravenous fluids will be continued at 100 mL per hour - Continue pain control - Continue Zosyn - CBC CMP in the a.m. - Ambulation #. Tobacco dependence - Nicotine patch Problems: Resuscitation Status: CPR: Attempt Resuscitation Attending Statement: I agree with Dr. Seay's assessment and plan. LORRAINE SEAY DO November 29, 2016 07:40 Ceferino Santana MD December 02, 2016 07:43
[2016-11-29] MEDS: HYDROmorphone PCA 0.2 mg/mL 30 mL Inj IV PRN ×2 (07:47→18:43)
[2016-11-29] MEDS ORDERED: Dexamethasone 4 mg/mL Inj ONE (07:54)
[2016-11-29] MEDS ORDERED: Glycopyrrolate 0.2 MG/ML 1mL Inj ONE (07:54)
[2016-11-29] MEDS ORDERED: fentaNYL-PF 50 mCg/mL 2 mL Inj ONE (07:54)
[2016-11-29] MEDS ORDERED: Propofol 10,000 mCg/mL 20 mL Inj ONE (07:54)
[2016-11-29] MEDS ORDERED: Rocuronium 10 mg/mL 5 mL Inj ONE (07:54)
[2016-11-29] MEDS ORDERED: HYDROmorphone 2 mg/mL Inj ONE (07:54)
[2016-11-29] MEDS ORDERED: Ondansetron 2 mg/mL 2 mL Inj ONE (07:54)
[2016-11-29] MEDS ORDERED: Neostigmine 1 mg/mL 10 mL Inj ONE (07:54)
[2016-11-29] MEDS: 0.9% Sodium Chloride 1,000 ML IV SCH ×2 (08:23→19:48)
[2016-11-29] MEDS: Pantoprazole 4 mg/mL 10 mL Inj IVPUSH SCH ×2 (11:36→16:20)
--- NOTE | 2016-11-29 12:07 | PCM.PNMED ---
Subjective Date of Service November 29, 2016 Subjective Leandro Warner is a 41-year-old man presenting with likely perforated viscus related to excessive NSAID use with a remote history of gastric bypass surgery now status post open laparotomy and omental patch. Hospital day #2. Post-op day #1. Overnight: No acute events. Today: The patient states he is doing fairly well. He has some abdominal pain but this is tolerable. He denies any fevers, chills, cough, or shortness of breath. The remainder of review of systems is negative except as noted above. Exam Vital Signs Vital Sign - Last Date Time Temp Pulse Resp B/P Pulse Ox O2 Delivery O2 Flow Rate FiO2 11/29/16 08:17 Supplement Oxygen 11/29/16 08:05 14 99 11/29/16 07:46 36.8 58 134/73 2.00 Intake and Output 11/28/16 11/28/16 11/29/16 Cumulative From/Thru 15:00 23:00 07:00 11/28/16 09:47 - 11/29/16 05:48 Intake Total 1000 ml 1350 ml 1091 ml 3441 ml Output Total 150 ml 485 ml 780 ml 1415 ml Balance 850 ml 865 ml 311 ml 2026 ml Intake Oral 0 ml 0 ml IV Total 1000 ml 1350 ml 1091 ml 3441 ml Output Urine Total 150 ml 485 ml 750 ml 1385 ml Drainage Total 0 ml 30 ml 30 ml # Voids 2 1 3 Exam General: Alert, Oriented X3, Cooperative, Moderate Distress Mouth: Mucous Membr Moist/[place], Other (patient has overall poor dentition multiple cavities noted however there is no overt abscess or gum infection noted on my examination.) Neck: Supple Chest & Lungs: Clear to auscultation & percussion Cardiovascular: Regular Rate/Rhythm Abdomen: Appropriately tender, midline surgical incision with MARIA M drain with small amount of serosanguineous fluid. Extremities: No cyanosis/clubbing/edma bilat Neurological: Grossly Neurologically Intact, Cranial Nerves 2-12 Intact IVs and Medications Medications Reviewed: Medications were reviewed in detail Lab and Diagnostics Result Diagram: 11/29/1623911/29/16239 X-Rays, CTs and MRIs X-RAY CHEST ONE VIEW, PORTABLE IMPRESSION: Pneumoperitoneum. Recommend correlation with clinical data and CT scan of the abdomen and pelvis if clinically indicated. Dictated by: Myrna Castro MD, PhD on 11/28/2016 at 10:35 X-RAY ABDOMEN WITH ERECT AND/OR DECUBITUS VIEWS IMPRESSION: Pneumoperitoneum. Bowel rupture cannot be excluded. Dictated by: Myrna Castro MD, PhD on 11/28/2016 at 11:19 Assessment & Plan Leandro Warner is a 41-year-old man presenting with likely perforated viscus related to excessive NSAID use with a remote history of gastric bypass surgery now status post open laparotomy and omental patch. Hospital day #2. Post-op day #1. Perforated viscus secondary to 0.5 cm ulceration in the setting of excessive NSAID use s/p omental patch - Gen. surgery has seen and evaluated patient planning on taking him to OR later today - Intravenous fluids will be continued at 100 mL per hour - Pain control with when necessary morphine to be titrated as needed - Zosyn initiated in ER will be continued for coverage of possible bacterial peritonitis secondary to perforation, antibiotic day #2 - Encourage ambulation - Gastrografin study tomorrow per surgery Nicotine dependence -Nicotine patch Dental pain - We will provide opiate-based pain medications at this time, NSAIDs would certainly be contraindicated in the future - Tylenol may be reasonable alternative, ideally further evaluation by dental professional will be ideal for long-term treatment of dental disease. CODE STATUS is been reviewed directly patient prefers to be full code at this time. Disposition: Per surgery. VTE Mechanical Devices: Intermittant Pneumatic CD Resuscitation Status: CPR: Attempt Resuscitation Attending Statement I interviewed and examined the patient on rounds today. I agree with the assessment and plan as stated above. Ngoc Curiel DO November 29, 2016 10:36 Anand Buck MD November 29, 2016 17:39
--- NOTE | 2016-11-29 13:38 | NUR ---
Status Patient resting quietly in bed. Nausea reported mid-shift, resolved with IV zofran. Denies flatus. Absent bowel sounds. Midline site dressing, c/d/i. Edges approximated. Minimal complaints of pain at operative site, rating 2 to 4/10. Dilaudid FIRER BOILER continued for pain management. Vital signs stable. Pulmonary hygiene practiced independently. Pt opting to stay in bed, declining to get up to chair/ambulate at this time, will continue to encourage pt to increased activity as tolerated.
[2016-11-29] MEDS ORDERED: Pantoprazole 4 mg/mL 10 mL Inj IVPUSH SCH (16:30)
[2016-11-29] MEDS: Dextrose 5% 500 ML IV SCH (18:39)
[2016-11-30] VITALS (13 sets, daily range): BP systolic 154–181; BP diastolic 99–114; PULSE 74–90; RESP 12–18; O2SAT 93–99
[2016-11-30 04:08] LABS: BASOPHILS % (AUTO) 0.1 % (0-3); EOSINOPHILS % (AUTO) 4.3 % (0-5); MONOCYTES % (AUTO) 6.8 % (4-12); Mean Corpuscular Hemoglobin 23.3 pg (27.0-35.0); Mean Corpuscular Volume 76.4 fL (81-100); NEUTROPHILS % (AUTO) 72.8 % (40-74); Platelet Count 430 bil/L (150-400)
[2016-11-30] MEDS: Piperacillin-Tazo 3.375 Gm Inj 3.375 GM in Dextrose 5% Minibag Plus 50 ML IV SCH ×3 (04:47→20:57)
[2016-11-30] MEDS: 0.9% Sodium Chloride 1,000 ML IV SCH ×2 (05:25→17:09)
--- NOTE | 2016-11-30 06:07 | NUR ---
PAIN Pain increased over night requiring several boluses on NEWS OPERATIONS MANAGER. Able to get comfortable after this. Not sleeping well, somewhat restless at times. Incision c/d/i, MARIA M produced 30ml over night.
[2016-11-30] MEDS: HYDROmorphone PCA 0.2 mg/mL 30 mL Inj IV PRN (08:20)
[2016-11-30] MEDS: Pantoprazole 4 mg/mL 10 mL Inj IVPUSH SCH ×2 (09:29→17:09)
[2016-11-30] MEDS ORDERED: Morphine PCA 1 mg/mL 30 mL Inj IV PRN ×2 (10:00→10:27)
--- NOTE | 2016-11-30 11:38 | NUR ---
Social Work Note: Screen Note Data& Assessment: EMR reviewed. Leandro Warner is a 41 year old male admitted on 11/28/2016 for GI perforation. Pt is listed as self pay insurance and does not have PCP identified. Per [facility] documentation, they are working on a Medicaid application with pt and pt family. SW to follow up regarding PCP pending MD order. Pt lives in [place] and is independent at baseline. SW to continue to follow. Plan: Anticipated discharge home via POV when medically ready. SW to follow up regarding PCP pending MD order. SW to continue to follow. JH Sanchez
[2016-11-30] MEDS: Morphine PCA 1 mg/mL 30 mL Inj IV PRN ×2 (13:07→21:11)
--- NOTE | 2016-11-30 14:15 | DRSVH ---
PROCEDURE: X-RAY UPPER GI WITH GASTROGRAPHIN ([id number]) INDICATIONS: Gastric Perf COMPARISON: [facility], CT, CT ABD PELVIS W CON, 11/28/2016, 12:19. FINDINGS: KUB: Preprocedural channel director film demonstrates a normal bowel gas pattern. No suspicious abdominal calc ifications. Visualized solid organ contours appear normal. Bony structures appear unremarkable. Le ft upper quadrant surgical drain is present. Surgical sutures present related to prior gastric Trinh- en-Y surgery. Patient was able to ingest Gastrografin without difficulty. Images of the stomach demonstrate gastri c Trinh-en-Y morphology and there is rapid opacification of the gastric pouch which is somewhat irregu lar. There is prompt free spillage of contrast medium to the proximal jejunum demonstrating patency of the gastrojejunal anastomosis and no free extravasation of contrast media was seen. The patient w as then given barium which also demonstrated patency of the gastrojejunal anastomosis and no extravas ation of contrast media is noted. The attending physician was personally present in the room during t he examination. IMPRESSION: 1. Gastrografin upper GI series demonstrating gastric Trinh-en-Y morphology of the stomach with patenc y of the gastro-jejunal anastomosis and no free spillage of contrast media. Of note, small contained perforation may not be readily visible secondary to the postsurgical changes, and wall irregularity involving the gastric pouch. Dictated by: Maicol SALDANA Interpreted: Denisse Tripathi MD on 11/30/2016 at 14:10 Transcribed by: MARILUZ on 11/30/2016 at 14:14 Approved by: Denisse Tripathi M.D. on 11/30/2016 at 17:15
--- NOTE | 2016-11-30 15:13 | PCM.PNMED ---
Subjective Date of Service November 30, 2016 Subjective Leandro Warner is a 41-year-old man presenting with likely perforated viscus related to excessive NSAID use with a remote history of gastric bypass surgery now status post open laparotomy and omental patch. Hospital day #3. Post-op day #2. He reports passing some flatus, no stool. There is no nausea and vomiting. Versus poor pain control with pain localized to left side of his abdominal wall. MARIA M drain output approximately 40 mL's every 24 hours. Switch from hydromorphone to morphine PUMP HOUSE TECHNICIAN today. Exam Vital Signs Vital Sign - Last Date Time Temp Pulse Resp B/P Pulse Ox O2 Delivery O2 Flow Rate FiO2 11/30/16 13:01 14 97 11/30/16 12:16 36.7 86 169/111 Room Air 11/29/16 11:28 1.00 Intake and Output 11/29/16 11/29/16 11/30/16 Cumulative From/Thru 15:00 23:00 07:00 11/28/16 09:47 - 11/30/16 06:08 Intake Total 1309 ml 1498 ml 6248 ml Output Total 810 ml 2130 ml 4355 ml Balance 499 ml -632 ml 1893 ml Intake Oral 200 ml 200 ml 400 ml IV Total 1109 ml 1298 ml 5848 ml Output Urine Total 800 ml 2100 ml 4285 ml Drainage Total 10 ml 30 ml 70 ml # Voids 3 # Bowel Movements 0 0 Exam General: Dysphoric appearing man in mild distress HEENT: sclerae anicteric, oral mucosa moist Neck: no JVD Chest: clear to auscultation Cardiac: S1S2, regular, no murmur Abdomen: BS active, mild protuberance but no tympany, tender to palpate, left- sided MARIA M drain in place Extremities: No pitting edema Neuro: A&O, cranial nerves symmetric, motor strength 5/5, coordination normal IVs and Medications Medications Reviewed: Medications were reviewed in detail Lab and Diagnostics Result Diagram: 11/30/16 03311/30/16 033 X-Rays, CTs and MRIs X-RAY CHEST ONE VIEW, PORTABLE IMPRESSION: Pneumoperitoneum. Recommend correlation with clinical data and CT scan of the abdomen and pelvis if clinically indicated. Dictated by: Myrna Castro MD, PhD on 11/28/2016 at 10:35 X-RAY ABDOMEN WITH ERECT AND/OR DECUBITUS VIEWS IMPRESSION: Pneumoperitoneum. Bowel rupture cannot be excluded. Dictated by: Myrna Castro MD, PhD on 11/28/2016 at 11:19 Assessment & Plan # Perforated viscus secondary to 0.5 cm ulceration in the setting of excessive NSAID use s/p omental patch - Gen. surgery to manage dietary advancement - Pantoprazole IV - Intravenous fluids will be continued at 100 mL per hour # Acute postsurgical pain. - Pain control with PUMP HOUSE TECHNICIAN morphine to be titrated as needed # Peritonitis, acute, present on admission. Zosyn initiated in ER will be continued for coverage of possible bacterial peritonitis secondary to perforation, antibiotic day #3 # Nicotine dependence -Nicotine patch # Dental pain - Tylenol may be reasonable alternative, ideally further evaluation by dental professional will be ideal for long-term treatment of dental disease. CODE STATUS is been reviewed directly patient prefers to be full code at this time. Disposition: Per surgery. Pain Evaluation: Pain not Controlled VTE Prophylaxis: Sub-Q Heparin (Unfractionated) VTE Mechanical Devices: Intermittant Pneumatic CD Resuscitation Status: CPR: Attempt Resuscitation Time spent 30 minutes Anand Buck MD November 30, 2016 15:13
--- NOTE | 2016-11-30 15:23 | PCM.PNSURG ---
Subjective Date of Service: November 30, 2016 Visit Information: Reason for Visit Gi Perforation Surgery/Surgery Date Post-Op Day #2 Date of Admission: November 28, 2016 at 14:18 Hospital Day # Subjective: Difficult morning achieving pain control. Much more comfortable after several DIRECTOR OF OPERATIONS HOME HEALTH bolus. Out of bed to chair this morning and ambulated in the hallway yesterday. Denies nausea or vomiting. Passing flatus but has not had a bowel movement. Postop General: No Complaints Gastrointestinal: No N/V, Passing Flatus Pain Management: DIRECTOR OF OPERATIONS HOME HEALTH without Basal Postop Activity: Ambulating in Room Only Objective Vital Sign- Last 8 Hours Date Time Temp Pulse Resp B/P Pulse Ox O2 Delivery O2 Flow Rate FiO2 11/30/16 13:01 14 97 11/30/16 12:16 36.7 86 18 169/111 99 Room Air 11/30/16 09:34 12 93 11/30/16 09:02 36.6 85 18 154/99 99 Room Air Intake and Output- Last 8 Hour 11/30/16 Cumulative From/Thru 07:00 11/28/16 09:47 - 11/30/16 06:08 Intake Total 1498 ml 6248 ml Output Total 2130 ml 4355 ml Balance -632 ml 1893 ml Intake Oral 200 ml 400 ml IV Total 1298 ml 5848 ml Output Urine Total 2100 ml 4285 ml Drainage Total 30 ml 70 ml # Voids 3 # Bowel Movements 0 0 General: Alert, Cooperative, No Acute Distress Lungs: Rhonchorus (bibasilar rhonchi, sounds wet) Heart: Regular Rate/Rhythm Abdomen: Soft, Appropriately tender, Non-distended SURGICAL WOUND : Wound General Appearence: Steri Strips, Sutures, Intact, Well Approximated, No Erythema, No Discharge Wound Drainage Type: MARIA M Drain #1 (30 mL of serosanguineous output over the last 8 hours) Extremities: Thigh&Calf Soft/Nontender Neuro: Normal Speech Catheters: None Result Diagram: 11/30/1632911/30/16329 Diagnostics: No extravasation on this morning's Gastrografin upper GI Assessment & Plan Impression Primary diagnosis: Perforated viscus----perforation of the Trinh limb of his gastrojejunostomy following gastric bypass surgery after excessive ibuprofen use. POD #2 with no extravasation on Gastrografin swallow. Other chronic conditions: 1. Remote history of pericarditis 2. Occasional marijuana smoker Problems: Plan 1. Walters catheter removed today. 2. Clear liquids as tolerated 3. Transfer to nursing [place] 4. Incentive spirometry every hour while awake 5. May shower Pain Management: DIRECTOR OF OPERATIONS HOME HEALTH VTE Prophylaxis: Sub-Q Heparin (Unfractionated) Resuscitation Status: CPR: Attempt Resuscitation Mikel Castillo PA-C November 30, 2016 15:23
[2016-11-30] MEDS: Heparin 5,000 Unit/mL Inj SUBQ SCH ×2 (17:09→23:57)
--- NOTE | 2016-11-30 17:54 | NUR ---
PAIN/ BULB GROWER Pt stated he felt itchy and pain 12/18 and not being treated even after the bolus doses the previous RN had given him. Changed BULB GROWER Dilaudid .2/1.2 over to BULB GROWER Morphine 2mg/10 min/ 6mg. Administered IV Benadryl IV. Pt stated he was feeling relief and pain well controlled. Side note under the BULB GROWER intervention it will not let me document dose due to being over the max dose. Double checked EMAR and with Pharmacist and its set up right.
[2016-11-30] MEDS: Dextrose 5% 500 ML IV SCH (18:07)
[2016-11-30] MEDS ORDERED: Acetaminophen IV 1,000 MG in IV Premix 1 EACH IV PRN (19:00)
[2016-12-01] VITALS (12 sets, daily range): BP systolic 148–169; BP diastolic 102–109; PULSE 79–87; RESP 16–20; O2SAT 96–99
--- NOTE | 2016-12-01 01:26 | NUR ---
ABD/Chest Pain/HTN At start of shift pt stated 6/10 sharp pain in generalized left abdomen and left chest. Pt stated he felt pain in chest and abdomen when he came in to the hospital. Also stated that he had left arm tingling but that this as well as left chest pain occasionally occur chronically since he had pericarditis. notified of symptoms. EKG done and was reviewed w/ insulation cupola charger, Night hospitalist also reviewed EKG outside room, did not see concern for cardiac. No new orders given. Morphine SCRAP PREPARER reconnected for pain control. Pt stated this was effective at bringing abdominal pain down to 3/10, which was tolerable. Pt also stated left chest pain gone w/ reassessment after morphine SCRAP PREPARER admin. MD aware. BP remains elevated after clonidine patch, ranging from 160s-170s/100s-110s. MD aware, no new orders given at this time. Addendum: 12/01/16 at 0642 by PRIMO NEWTON RN No further c/o left chest pain overnight, pt verbalized understanding to update nursing on this. This morning pt continues to state adequate pain control w/ morphine SCRAP PREPARER.
[2016-12-01] MEDS: Piperacillin-Tazo 3.375 Gm Inj 3.375 GM in Dextrose 5% Minibag Plus 50 ML IV SCH ×3 (04:31→20:38)
[2016-12-01] MEDS: Morphine PCA 1 mg/mL 30 mL Inj IV PRN (08:05)
[2016-12-01] MEDS: Heparin 5,000 Unit/mL Inj SUBQ SCH ×2 (08:38→17:10)
[2016-12-01] MEDS: Pantoprazole 4 mg/mL 10 mL Inj IVPUSH SCH ×2 (08:40→17:10)
[2016-12-01] MEDS: 0.9% Sodium Chloride 1,000 ML IV SCH (09:16)
--- NOTE | 2016-12-01 09:33 | PCM.PNSURG ---
Subjective Date of Service: December 01, 2016 Visit Information: Reason for Visit Gi Perforation Surgery/Surgery Date Post-Op Day #3 Date of Admission: November 28, 2016 at 14:18 Hospital Day # Subjective: Drinking liquids with no nausea or vomiting. Describes a single episode of bile reflux overnight. Passing flatus but has not had a bowel movement. Out of bed to the chair yesterday, has not ambulated. Pain well controlled with morphine VALVE PIPE IRRIGATOR. Using incentive spirometry. Postop General: No Shortness of Breath Gastrointestinal: Tolerating Oral Feedings, No N/V, Passing Flatus Pain Management: VALVE PIPE IRRIGATOR without Basal Postop Activity: Ambulating in Room Only Objective Vital Sign- Last 8 Hours Date Time Temp Pulse Resp B/P Pulse Ox O2 Delivery O2 Flow Rate FiO2 12/01/16 09:23 Supplement Oxygen 12/01/16 09:22 17 99 12/01/16 08:45 36.4 87 17 169/109 99 Room Air 12/01/16 06:24 97 12/01/16 04:16 18 96 12/01/16 04:15 37.0 86 18 152/109 96 Room Air Intake and Output- Last 8 Hour 12/01/16 Cumulative From/Thru 07:00 11/28/16 09:47 - 12/01/16 06:47 Intake Total 1658 ml 9286 ml Output Total 2330 ml 7800 ml Balance -672 ml 1486 ml Intake Oral 800 ml 1350 ml IV Total 858 ml 7936 ml Output Urine Total 2300 ml 7660 ml Drainage Total 30 ml 140 ml # Voids 3 # Bowel Movements 0 General: Alert, Cooperative, No Acute Distress Lungs: Clear to Auscultation Heart: Regular Rate/Rhythm Abdomen: Soft, Non-tender, Non-distended SURGICAL WOUND : Wound General Appearence: Steri Strips, Sutures, Intact, Well Approximated, No Erythema, No Discharge Wound Drainage Type: MARIA M Drain #1 (30 mL of serous drainage over the last 8 hours, no gastric content.) Neuro: Normal Speech Catheters: None Result Diagram: 11/30/1632911/30/16329 Assessment & Plan Impression Primary diagnosis: Perforated viscus----perforation of the Trinh limb of his gastrojejunostomy following gastric bypass surgery after excessive ibuprofen use. POD # 3, tolerating liquid diet. Other chronic conditions: 1. Remote history of pericarditis 2. Occasional marijuana smoker Problems: Plan 1. Full liquid diet 2. Ambulate Pain Management: VALVE PIPE IRRIGATOR VTE Prophylaxis: Sub-Q Heparin (Unfractionated) Resuscitation Status: CPR: Attempt Resuscitation Mikel Castillo PA-C December 01, 2016 09:32
--- NOTE | 2016-12-01 10:58 | NUR ---
Activity Pt has been up in the room to the bathroom multiple times with no complaints. Pt ambulated after breakfast in the sylvester for 2 laps with girlfriend. No complaints, pain still quite manageable with NATIONAL SALES ASSOCIATE Morphine.
--- NOTE | 2016-12-01 13:25 | NUR ---
NUTRITION ASSESSMENT: ASSESS: Pt is a 41yo M admitted for perforated viscus. He is POD 3. Diet was able to be advanced to Full Liquid today. He has been tolerating PO well at 75-90% of meals. No BM recorded yet. PMHX: Pericarditis, gastric bypass surgery LABS: Reviewed. (11/30) Alb 3.1 MEDS: Reviewed. Senna, miralax GI: 0 BM yet SKIN: no issues noted CURRENT WTS: 102.4kg, BMI 30.6kg/m2, admit wt 99.1kg, IBW 80.9kg DIET: Full Liquid. PO 75-90% EST. NEEDS: BMI Kcals: 2050-2255kcal/day (20-22kcal/kg) Pro: 95-120g/day (1.2-1.5g/kg IBW) NUTRITION DIAGNOSIS: 1.) Inadequate oral intake related to altered GI function as evidence by need for NPO/CL diet x3 days. NUTRITION INTERVENTION: 1.) Continue to advance diet as tolerated. Diet was advanced to [place] and pt is tolerating well. 2.) Encourage smaller more frequent meals due to history of gastric bypass surgery MONITOR / EVAL: PO, diet advc, BM, GI, labs, POC, nutrition status. Will continue to monitor per moderate nutrition risk guidelines
--- NOTE | 2016-12-01 14:33 | PCM.PNMED ---
Subjective Date of Service December 01, 2016 Subjective Leandro Warner is a 41-year-old man presenting with likely perforated viscus related to excessive NSAID use with a remote history of gastric bypass surgery now status post open laparotomy and omental patch. Hospital day #4. Post-op day #3. He reports passing some flatus, no stool. There is no nausea and vomiting. Pain control improved. On clear liquids Exam Vital Signs Vital Sign - Last Date Time Temp Pulse Resp B/P Pulse Ox O2 Delivery O2 Flow Rate FiO2 12/01/16 13:18 16 99 12/01/16 09:23 Supplement Oxygen 12/01/16 08:45 36.4 87 169/109 11/29/16 11:28 1.00 Intake and Output 11/30/16 11/30/16 12/01/16 Cumulative From/Thru 15:00 23:00 07:00 11/28/16 09:47 - 12/01/16 06:47 Intake Total 1380 ml 1658 ml 9286 ml Output Total 1115 ml 2330 ml 7800 ml Balance 265 ml -672 ml 1486 ml Intake Oral 150 ml 800 ml 1350 ml IV Total 1230 ml 858 ml 7936 ml Output Urine Total 1075 ml 2300 ml 7660 ml Drainage Total 40 ml 30 ml 140 ml # Voids 3 # Bowel Movements 0 Exam General: Dysphoric appearing man in mild distress HEENT: sclerae anicteric, oral mucosa moist Chest: clear to auscultation Cardiac: S1S2, regular, no murmur Abdomen: BS active, mild protuberance but no tympany, mild tender to palpate, left-sided MARIA M drain in place Extremities: No pitting edema Neuro: A&O, cranial nerves symmetric, motor strength and coordination normal IVs and Medications Medications Reviewed: Medications were reviewed in detail Lab and Diagnostics Result Diagram: 11/30/16 0330 11/30/16 033 X-Rays, CTs and MRIs X-RAY CHEST ONE VIEW, PORTABLE IMPRESSION: Pneumoperitoneum. Recommend correlation with clinical data and CT scan of the abdomen and pelvis if clinically indicated. Dictated by: Myrna Castro MD, PhD on 11/28/2016 at 10:35 X-RAY ABDOMEN WITH ERECT AND/OR DECUBITUS VIEWS IMPRESSION: Pneumoperitoneum. Bowel rupture cannot be excluded. Dictated by: Myran Castro MD, PhD on 11/28/2016 at 11:19 Assessment & Plan # Perforated viscus secondary to 0.5 cm ulceration in the setting of excessive NSAID use s/p omental patch - Gen. surgery to manage drain and dietary advancement - Pantoprazole IV - Intravenous fluids will be continued at 50 mL per hour # Acute postsurgical pain. - Pain control with FORESTRY LABORER morphine to be titrated as needed # Hypertension, acute. Clonidine 0.2 patch initiated on 11/30. No appreciable effect. - Initiated IV Vasotec - Convert to oral meds only after surgical service clears for by mouth pill intake # Peritonitis, acute, present on admission. Zosyn initiated in ER will be continued for coverage of possible bacterial peritonitis secondary to perforation. Persistent leukocytosisand is resolving. Antibiotic day #4 - DC antibiotics tomorrow # Nicotine dependence -Nicotine patch # Dental pain - Tylenol may be reasonable alternative, ideally further evaluation by dental professional will be ideal for long-term treatment of dental disease. CODE STATUS is been reviewed directly patient prefers to be full code at this time. Disposition: Per surgery. Pain Evaluation: Adequate Pain Control VTE Prophylaxis: Sub-Q Heparin (Unfractionated) VTE Mechanical Devices: Intermittant Pneumatic CD Resuscitation Status: CPR: Attempt Resuscitation Time spent 35 minutes Anand Buck MD December 01, 2016 14:33
[2016-12-01] MEDS: Dextrose 5% 500 ML IV SCH (18:37)
[2016-12-02] VITALS (7 sets, daily range): BP systolic 149–159; BP diastolic 91–102; PULSE 73–77; RESP 15–20; O2SAT 96–98
[2016-12-02] MEDS: Morphine PCA 1 mg/mL 30 mL Inj IV PRN (00:16)
[2016-12-02] MEDS: Heparin 5,000 Unit/mL Inj SUBQ SCH ×2 (00:30→08:48)
[2016-12-02 03:24] LABS: Mean Corpuscular Hemoglobin 23.6 pg (27.0-35.0); Mean Corpuscular Volume 72.5 fL (81-100)
[2016-12-02] MEDS: Piperacillin-Tazo 3.375 Gm Inj 3.375 GM in Dextrose 5% Minibag Plus 50 ML IV SCH (04:21)
[2016-12-02] MEDS: 0.9% Sodium Chloride 1,000 ML IV SCH (06:34)
--- NOTE | 2016-12-02 07:56 | NUR ---
Ambulation/HTN Pt ambulated entire unit x1 this shift, tolerated well w/ only symptom being slight increase in pain. This continues to be well controlled at rest w/ MANAGER PROGRAMS morphine per pt. Pt continues w/ HTN, IV Vasotec given w/ minimal effect, SBP improved at times to 140s-150s, but would not last. DBP continues at high 90s-low 100s.
[2016-12-02] MEDS: Pantoprazole 4 mg/mL 10 mL Inj IVPUSH SCH (08:47)
--- NOTE | 2016-12-02 08:53 | PCM.PNSURG ---
Subjective Date of Service: December 02, 2016 Date of Service: December 02, 2016 Visit Information: Reason for Visit Gi Perforation Surgery/Surgery Date Post-Op Day # 4 s/p perforated viscus with omental patch Date of Admission: November 28, 2016 at 14:18 Hospital Day # Subjective: Patient reports abdominal pain at 1/10 with chronic dental / back conditions stable. Denies chest pain and sob. Ambulated in sylvester quite a bit yesterday with minimal bump in pain. Reports several large bm's ystdy pm. Denies n/v and although eats small amounts at baseline s/p bariatric surgery, reports tolerating PO general diet started yesterday. Postop General: No Shortness of Breath, No Chest Pain Gastrointestinal: Tolerating Oral Feedings, No N/V, Passing Stool Pain Management: DIRECTOR GLOBAL STRATEGIC PUBLISHER SALES without Basal Postop Activity: Ambulating Independently Objective Objective Pleasant male in no apparent distress. Resting comfortably in bed. Vital Sign- Last 8 Hours Date Time Temp Pulse Resp B/P Pulse Ox O2 Delivery O2 Flow Rate FiO2 12/02/16 08:14 36.8 75 20 149/91 98 Room Air 12/02/16 06:35 16 96 12/02/16 05:10 75 12/02/16 04:29 20 97 12/02/16 04:25 36.7 77 20 159/102 97 Room Air Intake and Output- Last 8 Hour 12/02/16 Cumulative From/Thru 07:00 11/28/16 09:47 - 12/02/16 06:58 Intake Total 1000 ml 05115 ml Output Total 1490 ml 9290 ml Balance -490 ml 1598 ml Intake Oral 1000 ml 2350 ml IV Total 8538 ml Output Urine Total 1450 ml 9110 ml Drainage Total 40 ml 180 ml # Voids 3 # Bowel Movements 0 General: Alert, Oriented X3, Cooperative, No Acute Distress Neck: Supple Lungs: Clear to Auscultation Heart: Exam Unremarkable Abdomen: Benign, Soft, Appropriately tender (mostly drain site related.), Non- distended, Normoactive bowel tones SURGICAL WOUND : Wound General Appearence: Steri Strips, Intact, Well Approximated, No Erythema, No Inflammatory Changes Wound Drainage Type: MARIA M Drain #1 (serosang) Result Diagram: 12/02/16 0250 12/02/16 0250 Assessment & Plan Impression satisfactory postoperative course now POD 4 from omental patch for perforated viscus. Doing well with great recovery. Problems: Plan 1. DC DIRECTOR GLOBAL STRATEGIC PUBLISHER SALES and convert to oral 2. Oralize meds incl abx 3. continue gen diet 4. ambulate 5. HLIV 6. if pain controlled this pm-->pull drain, dc to home on ppi, pain meds 7. follow up in [place] surgery clinic 8. Will eventually need upper GI endoscopy to better evaluate disease process Pain Management: oxycodone morphine push for severe VTE Prophylaxis: Sub-Q Heparin (Unfractionated) Resuscitation Status: CPR: Attempt Resuscitation Rubio Evans PA-C December 02, 2016 08:53
--- NOTE | 2016-12-02 09:27 | PCM.DISURG ---
Surgical Discharge Instruction Date of Service December 02, 2016 Dates of Hospitalization Date of Hospital Admission November 28, 2016 at 14:18 Providers Admitting Physician: Uvaldo Marmolejo DO Primary Care Physician: Milind Attending Physician: Ceferino Santana MD Discharge Diagnosis Discharge Diagnosis Perforated viscus Post Operative diagnosis perforated viscus status post diagnostic laparoscopy, conversion to open laparotomy, closure of gastrointestinal perforation with omental patch closure Diet Discharge Diet: No restrictions Activity Discharge Activity-General: Balance rest and activity, No lifting >10 pounds for 4-6 weeks, No driving while taking narcotic, May drive in (2 weeks) Dressing and Incisional Care Dressing Care: Keep dressing clean, dry & intact, Allow Steri Stripes to fall off Hygiene: May shower, DO NOT soak incision under water, NO bathtub, hot tub or whirlpool Additional Instructions Discharge Instructions Continue proton pump inhibitor. Do not take NSAID's including ibuprofen, motrin , advil. You are advised to rely on tylenol, (take no more than 3000mg per day) for most discomfort. You will be given a prescription for Percocet that is best for resting pain. Do not drive for 2 weeks and then afterwards only if not taking Percocet narcotic. Additional Instructions You are encouraged to establish care with a physician. You will be given the opportunity at discharge to follow up with a primary care provider in addition to the general surgery office. Follow Up Plan Follow Up Plan Will need to eventually have upper endoscopy performed to better evaluate disease process. Mid-level Provider (F9): Mikel Castillo PA-C Follow-up appointment: Weeks (2) Call your provider for: Fever, Chills, Increasing abdominal pain, Nausea, Vomiting, Wound redness, Increasing wound pain, Warmth to touch, Discharge @ incision, pus discharge Rubio Evans PA-C December 02, 2016 09:27
[2016-12-02] MEDS ORDERED: LISI-610 PO ×2 (09:34→14:31)
[2016-12-02] MEDS ORDERED: Acetaminophen PO ×2 (09:34→14:28)
[2016-12-02] MEDS ORDERED: PANT40TA3 PO ×2 (09:34→14:31)
[2016-12-02] MEDS ORDERED: OXYC1TAB24 PO (09:35)
[2016-12-02] MEDS ORDERED: 0.9% Sodium Chloride 250 ML ONE (11:41)
--- NOTE | 2016-12-02 14:41 | PCM.DC.SUR ---
Discharge Summary Date of Service: December 02, 2016 Date of Hospital Admission: November 28, 2016 at 14:18 Date of Operation(s): November 28, 2016 Date of Discharge: December 02, 2016 Diagnosis at Time of Discharge Perforated viscus Problems: (1) Pericarditis Status: Resolved ICD Code: I31.9 (2) Gastrointestinal perforation Status: Acute ICD Code: K63.1 Operation Diagnostic laparoscopy, conversion to open laparotomy, closure of gastrointestinal perforation with omental patch closure Brief History and Physical: Patient is a 41-year-old male past medical history significant for remote bariatric surgery greater than 10 years ago presenting now for these are becoming more severe overnight. Pertinent history includes chronic dental and back pain for which patient takes a significant amount of ibuprofen. He denies any dark black or bloody stools however, notes stool pattern recently has been light brown and slightly watery. Last night he endorsed perhaps some mild chills but denies any fever or sweats. He also denies any palpitations or shortness of breath. Additional recent history includes a likely viral URI she occurred approximately one week previous creating a productive cough and nasal congestion, but this has been improving. Patient is accompanied by his girlfriend confirms T has not been himself appears very weak and fatigued and she has "never seen him like this before". Patient additionally denies any dizziness or blurry vision. Denies any pain radiating to extremities. Denies any focal weakness but he is overall feeling quite fatigued. Objective Pleasant male in no apparent distress. Resting comfortably in bed. Vital Sign- Last 8 Hours Date Time Temp Pulse Resp B/P Pulse Ox O2 Delivery O2 Flow Rate FiO2 12/02/16 08:14 36.8 75 20 149/91 98 Room Air 12/02/16 06:35 16 96 12/02/16 05:10 75 12/02/16 04:29 20 97 12/02/16 04:25 36.7 77 20 159/102 97 Room Air Intake and Output- Last 8 Hour 12/02/16 Cumulative From/Thru 07:00 11/28/16 09:47 - 12/02/16 06:58 Intake Total 1000 ml 97023 ml Output Total 1490 ml 9290 ml Balance -490 ml 1598 ml Intake Oral 1000 ml 2350 ml IV Total 8538 ml Output Urine Total 1450 ml 9110 ml Drainage Total 40 ml 180 ml # Voids 3 # Bowel Movements 0 General: Alert, Oriented X3, Cooperative, No Acute Distress Neck: Supple Lungs: Clear to Auscultation Heart: Exam Unremarkable Abdomen: Benign, Soft, Appropriately tender (mostly drain site related.), Non- distended, Normoactive bowel tones SURGICAL WOUND : Wound General Appearence: Steri Strips, Intact, Well Approximated, No Erythema, No Inflammatory Changes Wound Drainage Type: MARIA M Drain #1 (serosang) Result Diagram: 12/02/1624912/02/16249 Consultants: Hospitalist service Hospital Course: The patient was admitted to the hospital after presenting to the emergency department due to worsening epigastric abdominal pain. Workup in the emergency department showed an elevated white blood count of 16.3 and a plain x-ray showed pneumoperitoneum and subsequently a CT scan confirmed a moderate amount of pneumoperitoneum. He was subsequently taken to the operating room for diagnostic laparoscopy which was then converted to open laparotomy to repair a gastrointestinal perforation with an omental patch closure. Please refer to the operative notes for details. He was then transferred to the critical care unit and then the regular surgical floor just prior to discharge. On postoperative day number 2, the repair was studied by way of a gastrograffin challenge which showed no leak. The patient was then started on a oral diet which was tolerated well. Postoperative pain issues were initially moderately significant requiring DATA MANAGEMENT CONSULTANT utilization but was then changed to oral meds just prior to discharge which was also tolerated well. On postoperative day number 4, the patient was noted to be ambulating well, having bowel movements and tolerating a general diet without nausea or vomiting. He was then discharged to home in good condition with plans to follow up with general surgery in 2 weeks. Plans were also put into motion to eventually have an upper GI endoscopy performed on an outpatient basis to better evaluate the perforated viscus causative factors. During the hospital stay, elevated blood pressure was noted so the patient was started on lisinopril to be continued as an outpatient. He was also started on a proton pump inhibitor to protect the surgical repair. Pathology: None. Disposition: Home in good condition. Follow-up Plan: Follow up with general surgery PA in 2 weeks. Follow up with [facility] for primary care support. Will need to eventually obtain upper GI endoscopy evaluation. ([Acetaminophen]) 325 MG TABLET 325 MG PO Q4H PRN PRN For Mild Pain or Fever Lisinopril (Zestril) 10 Mg Tablet 10 MG PO DAILY Pantoprazole DR (Pantoprazole DR) 40 Mg Tablet.dr 40 MG PO BIDAC oxyCODONE-Acetaminophen 5-325 mg (oxyCODONE-Acetaminophen 5-325 mg) 1 Each Tablet 1-2 TAB PO Q6H PRN PRN For Pain Rubio Evans PA-C December 02, 2016 14:41
--- NOTE | 2016-12-02 16:13 | NUR ---
Discharge Pt left with significant other at 1600. A&Ox3, walked out and vitals stable. Gave oxycodone prior to discharge for abd pain 10/18. Prescriptions sent with, all discharge instructions gone over and understood. Wound care instructions gone over. All questions answered. IV and tele removed. All belongings taken with
[2016-12-02] MEDS ORDERED: Pantoprazole 40 mg ER24 Tablet PO SCH (16:30)
--- NOTE | 2016-12-02 19:23 | PCM.PNMED ---
Subjective Date of Service December 02, 2016 Subjective Leandro Warner is a 41-year-old man presenting with likely perforated viscus related to excessive NSAID use with a remote history of gastric bypass surgery now status post open laparotomy and omental patch. Hospital day #5. Post-op day #4. Tolerating solid foods with acceptable pain. Hypertension improved on TAMIR inhibitor. Exam Vital Signs Vital Sign - Last Date Time Temp Pulse Resp B/P Pulse Ox O2 Delivery O2 Flow Rate FiO2 12/02/16 09:19 15 98 12/02/16 08:14 36.8 75 149/91 Room Air 11/29/16 11:28 1.00 Intake and Output 12/01/16 12/01/16 12/02/16 Cumulative From/Thru 15:00 23:00 07:00 11/28/16 09:47 - 12/02/16 06:58 Intake Total 602 ml 1000 ml 70780 ml Output Total 1490 ml 9290 ml Balance 602 ml -490 ml 1598 ml Intake Oral 1000 ml 2350 ml IV Total 602 ml 8538 ml Output Urine Total 1450 ml 9110 ml Drainage Total 40 ml 180 ml # Voids 3 # Bowel Movements 0 Exam General: Comfortable appearing in no distress HEENT: sclerae anicteric, oral mucosa moist Chest: clear to auscultation Cardiac: S1S2, regular, no murmur Abdomen: BS active, mild tender to palpate Extremities: No pitting edema Neuro: A&O, cranial nerves symmetric, motor strength and coordination normal IVs and Medications Medications Reviewed: Medications were reviewed in detail Lab and Diagnostics Result Diagram: 12/02/16 0250 12/02/16 0250 X-Rays, CTs and MRIs X-RAY CHEST ONE VIEW, PORTABLE IMPRESSION: Pneumoperitoneum. Recommend correlation with clinical data and CT scan of the abdomen and pelvis if clinically indicated. Dictated by: Myrna Castro MD, PhD on 11/28/2016 at 10:35 X-RAY ABDOMEN WITH ERECT AND/OR DECUBITUS VIEWS IMPRESSION: Pneumoperitoneum. Bowel rupture cannot be excluded. Dictated by: Myrna Castro MD, PhD on 11/28/2016 at 11:19 Assessment & Plan # Perforated viscus secondary to 0.5 cm ulceration in the setting of excessive NSAID use s/p omental patch - Gen. surgery to manage drain and dietary advancement - Okay to discontinue antibiotics from our point of view # Acute postsurgical pain. -Converted to oral pain medication # Hypertension, acute. Clonidine 0.2 patch initiated on 11/30. Initiated IV Vasotec, then converted to lisinopril 10 mg daily. Blood pressure 150/90 prior to discharge -Recommend referral to medical residency clinic for follow-up of hypertension - Continue lisinopril at discharge # Peritonitis, acute, present on admission. Zosyn initiated in ER will be continued for coverage of possible bacterial peritonitis secondary to perforation. Persistent leukocytosisand is resolving. Antibiotic day #5 - DC antibiotics # Nicotine dependence, chronic. Patient was advised medical and effects of smoking cessation -Nicotine patch Disposition: Discharged today per surgery. VTE Prophylaxis: Sub-Q Heparin (Unfractionated) VTE Mechanical Devices: Intermittant Pneumatic CD Resuscitation Status: CPR: Attempt Resuscitation Time spent 30 minutes Anand Buck MD December 02, 2016 19:23
== END 2016-12-02 16:00 | disposition home or self-care (01) | DRG 326 ==
LOC: SED 09:41 → CCU 14:18 → PCC 11-29 07:59
PROVIDERS: ADMIT Family Medicine; ATTEND Surgery
PROC: 0DU907Z Supplement Duodenum with Autologous Tissue Substitute, Open Approach (ICD-10-PCS; 2016-11-28)
PROC: 0WJG4ZZ Inspection of Peritoneal Cavity, Percutaneous Endoscopic Approach (ICD-10-PCS; 2016-11-28)
PROC: 0DQ90ZZ Repair Duodenum, Open Approach (ICD-10-PCS; principal; 2016-11-28 16:00)
DX: K26.5 Chronic or unspecified duodenal ulcer with perforation (principal); K65.9 Peritonitis, unspecified; K08.89 Other specified disorders of teeth and supporting structures; T39.391A Poisoning by other nonsteroidal anti-inflammatory drugs [NSAID], accidental (unintentional), initial encounter; F17.200 Nicotine dependence, unspecified, uncomplicated; F12.90 Cannabis use, unspecified, uncomplicated; Z98.84 Bariatric surgery status; Z53.31 Laparoscopic surgical procedure converted to open procedure